=== PATIENT | male | born 1940 | race Caucasian/White ===

== ENCOUNTER 2024-04-23 07:37 | Outpatient (CLI) | payer MEDICARE, OTHER ==
[~2024-04-23 07:37] MED LIST: LACT1CAP64 PO; NOR5T PO; PANT40TA39 PO
== END 2024-04-23 23:59 | disposition home or self-care (01) ==
LOC: MRI02 07:37
PROVIDERS: ATTEND Family Medicine Sports Medicine
DX: M47.817 Spondylosis without myelopathy or radiculopathy, lumbosacral region (principal); M54.50 Low back pain, unspecified; M25.551 Pain in right hip; M16.11 Unilateral primary osteoarthritis, right hip; M48.07 Spinal stenosis, lumbosacral region; M51.379 Other intervertebral disc degeneration, lumbosacral region without mention of lumbar back pain or lower extremity pain; M43.16 Spondylolisthesis, lumbar region
CPT/HCPCS: 72148

== ENCOUNTER 2024-08-18 10:09 | Inpatient (IN) | payer MEDICARE, OTHER ==
[~2024-08-18] VITALS: Ht 185.4 cm; Wt 110.6 kg
[~2024-08-18 10:09] MED LIST changes: +AMLO2.5T2 PO; +APIX5TAB3 PO; +CELE-127 PO; +HYDR25TA4 PO; +IRBE300T26 PO; +MAGN400T39 PO; +MULT-1217 PO; -NOR5T PO; -PANT40TA39 PO; +TAMS-55 PO; +[UNRECOGNIZED DRUG - OTHER]
--- NOTE | 2024-08-18 10:25 | ELECTROCARDIOGRAPH REPORT ---
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 Freddie Mak Measurements Intervals [place] Rate: 81 P: -17 IA: 253 QRS: 21 QRSD: 141 T: -3 QT: 383 QTc: 445 Interpretive Statements Sinus tachycardia Multiform ventricular premature complexes Prolonged IA interval Right bundle branch block Electronically Signed On 08-18-2024 10:24:[address] Freddie Mak Please click the below link to view image of tracing.
[2024-08-18 10:32] LABS: MEAN PLATELET VOLUME 8.2 FL (7.4-10.4); RED CELL DISTRIBUTION WIDTH 14.1 % (11.5-14.5)
--- NOTE | 2024-08-18 10:45 | RADIOLOGY REPORT ---
CHEST RADIOGRAPH Indication: CP Technique: Single frontal view of the chest was obtained COMPARISON: None FINDINGS: Lines and Tubes: None Lungs: Clear Pleura: No effusion. No pneumothorax. Cardiomediastinal contours: Unremarkable Bones: Unremarkable IMPRESSION: No acute disease.
[2024-08-18 10:48] LABS: CREATININE 1.10 MG/DL (0.60-1.10); TOTAL CARBON DIOXIDE 25.7 MMOL/L (24-32); eCRCL 54 ML/MIN; eGFR 63 ML/MIN
--- NOTE | 2024-08-18 10:50 | Physician Documentation ---
History of Present Illness Chief Complaint: Post-operative complication Stated Complaint: POST OP COMPLICATIONS Time Seen by MD: 10:49 OK to notify your PCP?: Yes Source: patient, family, RN/, RN notes reviewed, old records Exam Limitations: no limitations HPI 84 year old male seen in bed 02 presents to the emergency department with family who was sent by home health nurse due to low heart rate. Patient had a right hip replacement performed by Dr. Guevara on 07/22/2024. Patient has been doing well in his healing process. Today his blood pressure dropped and he felt dizzy and lightheaded and reported a heart rate in the 40s. Patient denies any fevers chills or coughing. Of note he states he has an appointment with Dr. Guevara in two days to follow up following his surgery. Family states they had called Dr. Guevara office yesterday who were not concerned about his symptoms. Patient denies any other associated symptoms at this time. Patient denies any other alleviating or exacerbating factors. Medication Reconciliation Allergies: Coded Allergies: No Known Allergies (Unverified , 05/27/12) Scheduled Amlodipine* (Norvasc*), 1 TAB PO DAILY, (Reported) Apixaban (Eliquis), 1 TAB PO Q12H, (Reported) Hydrochlorothiazide (Hydrochlorothiazide), 1 TAB PO DAILY, (Reported) Irbesartan (Irbesartan), 1 TAB PO DAILY, (Reported) Lactobacillus Rhamnosus R0011 (Probiotic Digestive Care), 1 EACH PO DAILY, (Reported) Magnesium Oxide (Magnesium), 1 TAB PO DAILY, (Reported) Multivit-Min/Folic/Vit K/Lycop (Men's 50 Plus Multivitamin Tab), 1 TAB PO DAILY, (Reported) Tamsulosin Hcl* (Flomax*), 1 CAP PO DAILY, (Reported) Discontinued Medications Celecoxib (Celecoxib), 1 CAP PO BID Discontinued Reason: patient no longer taking [Cbg], 2,000 UNITS DAILY, (Reported) Discontinued Reason: patient no longer taking Past Medical History Past Medical History: Bronchitis, Cholelithiasis, GERD, Anemia, Arthritis, Chronic Back Pain, Osteoarthritis Past Surgical History: orthopedic surgeries Patient History: FH: CABG (coronary artery bypass surgery) FATHER MOTHER FH: diabetes mellitus FATHER Smoking Status: Never smoker Alcohol Use: None Drug Use: none Review of Systems All Other Systems at this time: Reviewed and Negative ROS As stated above in the HPI, otherwise all systems are reviewed and negative. Physical Exam Vital Signs: RN Vital Signs have been reviewed: Yes, Temperature: 98.2, Source: Temporal, Heart Rate: 53, Respiratory Rate: 19, BP: 187/80, Pulse Oximetry: 98, Weight: 110.600 Oxygen Flow Rate: 0 Pulse Oximetry Reflects: adequate oxygenation Physical Exam General: The patient is well developed, well nourished, nontoxic appearing and is in no acute distress. Skin: [place], warm and dry with no rashes. HEENT: Head was normocephalic and atraumatic. Eyes - pupils equal, round, reactive to light and accommodation. Extraocular movements were intact. Conjunctivae were nonicteric. Ears - bilateral tympanic membranes were normal. The mouth and oropharynx were clear with moist mucous membranes. There were no pharyngeal exudates or erythema. Neck: Supple and nontender. There was no jugular venous distention, lymphadenopathy, thyromegaly or masses. Chest: Clear to auscultation bilaterally without wheezes, rales or rhonchi. No accessory muscle use. No dullness to percussion. Heart: Rate regular and rhythmic. S1, S2. No murmurs. Palpation of the chest wall was normal. No rubs or thrills. Abdomen: Soft, nontender and nondistended. Positive bowel sounds. No guarding or rebound. No hepatosplenomegaly or palpable masses. Extremities: Well healing wound to right hip with no signs of infection.Portion of wound has maegan in place with minimal dehiscence. Blisters to right hip. The patient moves all extremities. Pulses were equal and symmetric. Neurologic: Cranial nerves II-XII were intact. Sensation was intact to light touch throughout. Motor strength was 5/5 in all four extremities. Deep tendon reflexes were intact in both upper and lower extremities. Psychologic: The patient was oriented to person, place and time. The patient demonstrated appropriate judgement and insight. Progress Progress Note 1520: The case was discussed with Dr. Guevara who was informed on the patients case and stated that the patient should be admitted. 1536: The case was discussed with the hospitalist Dr. Zapien who was informed on the patient and kindly agreed to admission. Results/Orders Reviewed/noted all lab results: Yes Results/Orders Vital Signs 08/18/24 10:11 Temp 98.2 Pulse 53 Resp 19 B/P (MAP) 187/80 Pulse Ox 98 O2 Flow Rate 0 Laboratory Tests Test 08/18/24 10:23 White Blood Count 8.5 Red Blood Count 4.82 Hemoglobin 14.8 Hematocrit 43.9 Mean Corpuscular Volume 91.1 Mean Corpuscular Hemoglobin 30.6 Mean Corpuscular Hemoglobin Concent 33.6 Red Cell Distribution Width 14.1 Platelet Count 256 Mean Platelet Volume 8.2 Neutrophils (%) (Auto) 66.3 Lymphocytes (%) (Auto) 14.8 L Monocytes (%) (Auto) 12.4 H Eosinophils (%) (Auto) 5.8 Basophils (%) (Auto) 0.7 Neutrophils # (Auto) 5.6 Lymphocytes # (Auto) 1.3 Monocytes # (Auto) 1.1 H Eosinophils # (Auto) 0.5 Basophils # (Auto) 0.1 CBC Comment Sodium Level 136 Potassium Level 3.9 Chloride Level 100 Carbon Dioxide Level 25.7 Anion Gap 10 Blood Urea Nitrogen 19 H Creatinine 1.10 Estimated GFR/1.73 m2 63 BUN/Creatinine Ratio 17.3 Glucose Level 131 H Calcium Level 9.6 Total Bilirubin 0.4 Aspartate Amino Transf (AST/SGOT) 24 Alanine Aminotransferase (ALT/SGPT) 35 Alkaline Phosphatase 123 H Troponin I High Sensitivity 17 Total Protein 7.9 Albumin 3.9 Globulin 4.0 Albumin/Globulin Ratio 1.0 L Chemistry Comments Re-Evaluation Re-Evaluation : Re-Evaluation: Improved Progress Patient was seen and examined. Patient is given reassurance. The patient was complaining of some right hip pain some slight swelling potential wound dehiscence maegan are in place in the inferior aspect of the wound but no signs of obvious infection. Laboratory work also showed no hints of infection with a WBC of 8.5 H and H of 14 and 43 platelets 256. Patient's chemistry was also reassuring without any electrolyte abnormalities no renal insufficiency or abnormalities. LFTs were reassuring as well. Patient received fluids vancomycin Rocephin after CAT scan showed seroma hematoma versus infection. Patient's markers are going against infection which is reassuring. Case was discussed with Orthopedic surgery who recommended admission IV antibiotics and the patient will be re-evaluated. Possibly seroma and postoperative pain. Family was aware of the plan and the patient was then admitted for further management and care. Continuous vehicle monitor technician interpretation shows normal sinus rhythm heart rate 50s, no ectopy, normal, my interpretation. Pulse oximetry monitor interpretation shows normal oxygenation at 98% room air, normal, my interpretation. EKG/XRAY/CT/US/VASC/MRI EKG : Additional Comment 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 Freddie Mak Measurements Intervals [place] Rate: 81 P: -17 MT: 253 QRS: 21 QRSD: 141 T: -3 QT: 383 QTc: 445 Interpretive Statements Sinus tachycardia Multiform ventricular premature complexes Prolonged MT interval Right bundle branch block Electronically Signed On 08-18-2024 10:24:[address] Freddie Mak Please click the below link to view image of tracing. EKG Date and Time:08/18/24 1023 Electronically Signed by: FREDDIE MAK MD Date and Time: 08/18/24 1024 Chest X-Ray : Additional Comments CHEST RADIOGRAPH Indication: CP Technique: Single frontal view of the chest was obtained COMPARISON: None FINDINGS: Lines and Tubes: None Lungs: Clear Pleura: No effusion. No pneumothorax. Cardiomediastinal contours: Unremarkable Bones: Unremarkable IMPRESSION: No acute disease. Electronically Signed by:PORFIRIO SANDHU MD Date & Time: 08/18/[address] : Impression CLINICAL INDICATION: right hip surgery pain drainage TECHNIQUE: CT scan of the right hip was performed with intravenous contrast. 100 mL Omnipaque 350 intravenous contrast was used. Coronal and sagittal reformatted images are submitted. COMPARISON: None CT Dose: CTDI volume is 20.3 mGy. Dose-length product is 817.2 mGy*cm FINDINGS: There is a right hip replacement. The components are well aligned and well seated. No perihardware lucency. No periprosthetic fracture. No cortical destruction or periosteal reaction. There is a right hip joint effusion which is contiguous with a fluid collection in the deep subcutaneous soft tissues of the hip. The fluid collection measures 6.8 by 3.3 by 10.8 cm. There is minimal peripheral enhancement of the fluid collection. Mild subcutaneous stranding in the soft tissues of the right hip. Skin closure maegan noted. No cortical destruction or periosteal reaction. IMPRESSION: 1. 10.8 cm fluid collection in the soft tissues of the right hip contiguous with right hip joint. This could reflect postoperative seroma or abscess. Fluid sampling may be obtained if clinically warranted. 2. No acute osseous abnormality or abnormal alignment of the right hip replacement. All CT scans at this medical facility are performed using dose modulation techniques as appropriate to a performed exam including the following: Automated exposure control was utilized; adjustment of the MA and/or KV according to patient size; and use of iterative reconstruction technique. Electronically Signed by:ALYSSA HERRERA MD Date & Time: 08/18/24 1329 Medical Decision Making Additional info obtained from: old records Differential Dx:Considerations: Include: Other Departure Disposition: 09 ADMITTED INPATIENT Admitted to Inpatient Unit: yes, to hospitalist Admission Level of Care: Med/Surg Impression: Primary Impression: Acute postoperative pain of hip Qualified Codes: G89.18 - Other acute postprocedural pain; M25.551 - Pain in right hip Additional Impression: Seroma Condition: Fair Referrals: NO PRIMARY CARE PROVIDER (PCP) Education Educated: Patient, Family Educated regarding: diagnosis, treatment, prognosis, need for follow up Signature Scribe Signature: Scribed for Freddie Mak MD by Deniz Jefferson . 08/18/24 11:24 Attestation: The note accurately reflects work and decisions made by me.Freddie Mak MD 08/18/24 10:50 FREDDIE MAK MD Aug 18, 2024 10:50 DENIZ WELCH Aug 18, 2024 11:20
[2024-08-18 10:54] LABS: PRO BRAIN NATRIURETIC PEPTIDE 430 PG/ML (0-450)
[2024-08-18] MEDS: normal saline 1000ML IV soln IVB ONE (11:34)
[2024-08-18] MEDS ORDERED: iohexol 300mg/ml 100ml inj. ONE (12:10)
--- NOTE | 2024-08-18 13:32 | RADIOLOGY REPORT ---
CLINICAL INDICATION: right hip surgery pain drainage TECHNIQUE: CT scan of the right hip was performed with intravenous contrast. 100 mL Omnipaque 350 int ravenous contrast was used. Coronal and sagittal reformatted images are submitted. COMPARISON: None CT Dose: CTDI volume is 20.3 mGy. Dose-length product is 817.2 mGy*cm FINDINGS: There is a right hip replacement. The components are well aligned and well seated. No vani hardware lucency. No periprosthetic fracture. No cortical destruction or periosteal reaction. There i s a right hip joint effusion which is contiguous with a fluid collection in the deep subcutaneous sof t tissues of the hip. The fluid collection measures 6.8 by 3.3 by 10.8 cm. There is minimal periphe ral enhancement of the fluid collection. Mild subcutaneous stranding in the soft tissues of the righ t hip. Skin closure maegan noted. No cortical destruction or periosteal reaction. IMPRESSION: 1. 10.8 cm fluid collection in the soft tissues of the right hip contiguous with right hip joint. Thi s could reflect postoperative seroma or abscess. Fluid sampling may be obtained if clinically warrant ed. 2. No acute osseous abnormality or abnormal alignment of the right hip replacement. All CT scans at this medical facility are performed using dose modulation techniques as appropriate t o a performed exam including the following: Automated exposure control was utilized; adjustment of th e MA and/or KV according to patient size; and use of iterative reconstruction technique.
[2024-08-18] MEDS ORDERED: magnesium Cl slow-release 64mg tablet PO PRN (15:45)
[2024-08-18] MEDS ORDERED: potassium Cl 40MEQ/1/2NS 520ml 520 ML IV PRN (15:45)
[2024-08-18] MEDS ORDERED: potassium Cl 20 mEq SR tablet PO PRN ×2 (15:45)
[2024-08-18] MEDS: CefTRIAXone 2gm/D5W 50ml BAG 50 ML IV ONE (15:47)
[2024-08-18] MEDS: normal saline 1000ml 1,000 ML IV SCH (15:54)
[2024-08-18] MEDS: VANCOMYCIN 1.75GM/WATER FOR INJ (PEG) 350 ML IVPB IV ONE (16:13)
--- NOTE | 2024-08-18 16:31 | HISTORY AND PHYSICAL-Residence ---
History & Physical Providers to CC Resident Creating Document: RAFFI AMADOR RES ~ History of Present Illness Reason for Admit\Complaint: pain in hip, low heart rate History of Present Illness This is an 84-year-old male with a history of severe degenerative joint disease, hypertension, and atrial fibrillation (managed by Dr. Eaton) , who is status post right hip arthroplasty on July 22, [address] Guevara. He presented to the ER today with severe, excruciating right hip pain that started this morning in his progressively worsened. The pain is aggravated by weight-bearing activities, rendering him unable to ambulate, but improves with rest. In addition to his pain, the patient was evaluated by his physical therapist this morning, who noted bradycardia with heart rate in the 40s, as well as low blood pressure, associated with dizziness, and lightheadedness. He denies chest pain, shortness of breath, or fever. A CT scan of the lower extremity revealed 10.8 cm fluid collection within the soft tissue of the right hip, concerning for postoperative seroma or possible abscess. CBC was within reference ranges. On exam, there is no inflammatory signs i.e., tenderness, warmth, or swelling. He reports otherwise steady progress in his recovery. He has a follow up appointment with Dr. Guevara in two days, and had previously contracted Dr. Guevara of his yesterday, where no significant concern was raised at that time. Patient lives alone in his home and has a remote history of smoking, consumes alcohol occasionally, and denies recreational drugs. I have discussed advance care planning with the patient. The patient has decided on a full code status. Allergies: Coded Allergies: No Known Allergies (Unverified , 05/27/12) Home Medications Home Medications Active Reported Norvasc* (Amlodipine Besylate) 2.5 Mg Tablet 1 Tab PO DAILY 30 Days Magnesium (Magnesium Oxide) 400 Mg Magnesium Tablet 1 Tab PO DAILY NEEDED Men's 50 Plus Multivitamin Tab (Multivit-Min/Folic/Vit K/Lycop) 400 Mcg-20 Mcg- 370 Mcg Tablet 1 Tab PO DAILY Eliquis (Apixaban) 5 Mg Tablet 1 Tab PO Q12H Hydrochlorothiazide 25 Mg Tablet 1 Tab PO DAILY Irbesartan 300 Mg Tablet 1 Tab PO DAILY Flomax* (Tamsulosin HCl) 0.4 Mg Cap.sr.24h 1 Cap PO DAILY Probiotic Digestive Care (Lactobacillus Rhamnosus R0011) 1 Each Capsule 1 Each PO DAILY Past Medical History Past Medical History Osteoarthritis, hypertension, atrial fibrillation Past Surgical History Surgical History Comment Right hip arthroplasty Family History Family History: FH: CABG (coronary artery bypass surgery) FATHER MOTHER FH: diabetes mellitus FATHER Past Social History Social History Comment Patient lives alone in his home and has a remote history of smoking, consumes alcohol occasionally, and denies recreational drugs. I have discussed advance care planning with the patient. The patient has decided on a full code status. ROS All Other Systems: Reviewed and Negative ROS As stated above in the HPI, otherwise all systems are reviewed and negative. Exam Vitals: Vital Signs Date Time Temp Pulse Resp B/P (MAP) Pulse Ox O2 Delivery O2 Flow Rate FiO2 08/18/24 15:48 68 16 145/75 (98) 98 0 08/18/24 10:11 98.2 General: Awake and Alert, no acute distress. HEENT: Conjunctiva pink, Sclera clear, Mucus Membranes moist. Neck: Supple without masses and tenderness. Resp: Unlabored. Lungs clear to auscultation bilaterally. Heart: Regular Rate and rhythm, normal S1 and S2 without murmur, rub or gallop. Abdomen: Soft and non tender no organomegaly Extremities: Right hip does not have any warmth, tenderness, or swelling. Five maegan retained, to blisters noted around surgical site Skin: Warm and Dry. Diagnostic Data Last Recorded Lab Results: 08/18/24 1023 08/18/24 1023 Advance Care Planning Advanced Care plannin - 30 Minutes Additional Plan Severe right hip pain History of severe degenerative joint disease Status post right hip arthroplasty; July 22, 2024 Pain likely related to a postoperative fluid collection seen on CT; concerning for seroma versus abscess Dr. Guevara consulted, evaluation pending. NPO after midnight Monitor for systemic signs of infection Pain management IV hydration; NS 100 mL/hour Empiric antibiotics; vancomycin and ceftriaxone Bradycardia with hypotension Found by physical therapist; heart rate in the 40s with the associated dizziness and lightheadedness Telemetry monitoring; trend heart rate and blood pressure Hold AV toney blockers Hypertension History of hypertension, currently stable Hold antihypertensive medications i.e. hydrochlorothiazide, amlodipine and irbesartan History of AFib; currently sinus, no RVR Hold Eliquis for possible intervention; risk versus benefits discussed with the patient Code status: Full code DVT prophylaxis: Lovenox Raffi Najibi Internal Medicine Resident Date of Service: Aug 18, 2024 Billing Provider: JEREMIE ANDERSON MD Common Visit Codes: 51683-[id number] INP/OBS CARE (HIGH) Secondary Visit Codes: 44370-[id number] CARE PLAN 30 MINUTES RAFFI AMADOR, RES Aug 18, 2024 16:31 JEREMIE ANDERSON MD Aug 19, 2024 17:51
[2024-08-18 17:50] VITALS: BP 159/80; PULSE 64; RESP 16; TEMP 98.4; O2SAT 98
[2024-08-18 20:30] VITALS: RESP 18; O2SAT 98
[2024-08-18 22:18] VITALS: BP 162/74; PULSE 54; RESP 18; TEMP 97.4; O2SAT 97
[2024-08-19] MEDS ORDERED: HYDROcodone/acetaminophen 5mg/325mg tablet PO PRN (00:25)
[2024-08-19] MEDS: HYDROcodone/acetaminophen 10/325mg tab PO PRN (00:51)
[2024-08-19] MEDS: vancomycin/NS 1 GM ADD-VANTAGE 250 ML X 1 DOSE IV SCH (04:23)
[2024-08-19 05:16] LABS: MEAN PLATELET VOLUME 8.1 FL (7.4-10.4); RED CELL DISTRIBUTION WIDTH 14.0 % (11.5-14.5)
[2024-08-19 05:32] LABS: CREATININE 0.90 MG/DL (0.60-1.10); TOTAL CARBON DIOXIDE 27.4 MMOL/L (24-32); eCRCL 67 ML/MIN; eGFR 80 ML/MIN
[2024-08-19 06:00] VITALS: BP 150/61; PULSE 69; RESP 20; TEMP 98.2; O2SAT 98
[2024-08-19] MEDS ORDERED: enoxaparin 40mg/0.4ml syringe SUBCUT SCH (08:00)
--- NOTE | 2024-08-19 09:00 | CONSULTATION REPORT ---
History of Present Illness Providers to CC ~ Reason for Admit\Admit Dx: pain in hip, low heart rate History of Present Illness Right pain status post total hip arthroplasty. History of present illness: This patient is three weeks status post total hip arthroplasty developed increased pain two days prior to his presentation of the emergency room for increased pain. He is unaware of any significant activity the cause of the onset of pain. He please note he is on anticoagulation therapy He denies a fall or traumatic episode. He denies fever or malaise. Exam: Patient has right hip exam shows a well-healed incision without any erythema moderate swelling but no drainage. Neuromotor and vascular supply is intact to the right upper extremity moderate swelling to his right thigh consistent with his postop status total hip arthroplasty. No other findings on exam. Labs were reviewed and are within normal limits except for some mild anemia which is consistent with his postop status. CT scan reveals fluid collection 10 cm anterior hip wishes the area of the surgical approach consistent with seroma versus hematoma. Assessment: Patient has developed a postop hematoma seroma that became asymptomatic probably secondary to his anticoagulation. His symptoms have completely resolved with his hospitalization and reduced activity. Plan: I have discussed the situation with him and his son who is his caregiver at this point in time. The very comfortable having him go home and spend more time in the recliner and less time upright and active. I am recommending he continue oral antibiotics postoperatively for prophylaxis. Follow up with me in two weeks. Allergies: Coded Allergies: No Known Allergies (Unverified , 05/27/12) Home Medications Home Medications Active Reported Norvasc* (Amlodipine Besylate) 2.5 Mg Tablet 1 Tab PO DAILY 30 Days Magnesium (Magnesium Oxide) 400 Mg Magnesium Tablet 1 Tab PO DAILY NEEDED Men's 50 Plus Multivitamin Tab (Multivit-Min/Folic/Vit K/Lycop) 400 Mcg-20 Mcg- 370 Mcg Tablet 1 Tab PO DAILY Eliquis (Apixaban) 5 Mg Tablet 1 Tab PO Q12H Hydrochlorothiazide 25 Mg Tablet 1 Tab PO DAILY Irbesartan 300 Mg Tablet 1 Tab PO DAILY Flomax* (Tamsulosin HCl) 0.4 Mg Cap.sr.24h 1 Cap PO DAILY Probiotic Digestive Care (Lactobacillus Rhamnosus R0011) 1 Each Capsule 1 Each PO DAILY Past Family History Family History: FH: CABG (coronary artery bypass surgery) FATHER MOTHER FH: diabetes mellitus FATHER Physical Exam Last Vital Signs Recorded: Temperature: 98.2, Source: Oral, Heart Rate: 69, Respiratory Rate: 20, BP: 150/61, Pulse Oximetry: 98, Weight: 110.600 Results Diagram Lab Result Diagram: 08/19/2449908/19/24 0500 CARMEN CABELLO MD Aug 19, 2024 08:59
[2024-08-19 09:29] VITALS: RESP 15
[2024-08-19] MEDS ORDERED: AMOX-580 PO (11:36)
--- NOTE | 2024-08-19 12:21 | DISCHARGE SUMMARY-Residence ---
Discharge Summary Providers to CC Resident Creating Document: PILI AMADOR, HYUN ~ Discharge Summary Admission Diagnosis: Right hip seroma/abscess Hospital Course DATE OF ADMISSION: AUGUST 18, 2024 DATE OF DISCHARGE: AUGUST 19, 2024 Discharge Diagnosis\Comment: Severe right hip pain; seroma/hematoma 2/2 right hip arthroplasty History of severe degenerative joint disease Status post right hip arthroplasty; July 22, 2024 Reported Bradycardia with hypotension; not recorded on telemetry during hospital stay Hypertension History of atrial fibrillation Operations\Procedures: none Consultants: Dr. Guevara Complications: none Condition on DC: Stable New Medications: Amox Tr/Potassium Clavulanate 875/125 MG (Augmentin 875/125 MG) 875 Mg-125 Mg Tablet 1 TAB PO BID, #14 TAB Continued Medications: Amlodipine* (Norvasc*) 2.5 Mg Tablet 1 TAB PO DAILY for 30 Days, #30 TAB Apixaban (Eliquis) 5 Mg Tablet 1 TAB PO Q12H, TAB 0 Refills Hydrochlorothiazide (Hydrochlorothiazide) 25 Mg Tablet 1 TAB PO DAILY, TAB 0 Refills Irbesartan (Irbesartan) 300 Mg Tablet 1 TAB PO DAILY, TAB 0 Refills Lactobacillus Rhamnosus R0011 (Probiotic Digestive Care) 1 Each Capsule 1 EACH PO DAILY Magnesium Oxide (Magnesium) 400 Mg Magnesium Tablet 1 TAB PO DAILY, TAB 0 Refills NEEDED Multivit-Min/Folic/Vit K/Lycop (Men's 50 Plus Multivitamin Tab) 400 Mcg-20 Mcg- 370 Mcg Tablet 1 TAB PO DAILY Tamsulosin Hcl* (Flomax*) 0.4 Mg Cap.sr.24h 1 CAP PO DAILY, CAP Discharge Summary: Hospital Course: This is an 84-year-old male with a history of severe degenerative joint disease, hypertension, and atrial fibrillation (managed by Dr. Eaton) , who is status post right hip arthroplasty on July 22, [address] Guevara. He presented to the ER today with severe, excruciating right hip pain that started this morning in his progressively worsened. The pain is aggravated by weight-bearing activities, rendering him unable to ambulate, but improves with rest. In addition to his pain, the patient was evaluated by his physical therapist this morning, who noted bradycardia with heart rate in the 40s, as well as low blood pressure, associated with dizziness, and lightheadedness. He denies chest pain, shortness of breath, or fever. A CT scan of the lower extremity revealed 10.8 cm fluid collection within the soft tissue of the right hip, concerning for postoperative seroma or possible abscess. CBC was within reference ranges. On exam, there is no inflammatory signs i.e., tenderness, warmth, or erythema. He reports otherwise steady progress in his recovery. Discharge Course: Patient is stable. His symptoms resolved with reduced activity. Dr. Guevara was consulted who evaluated the patient as well as imaging and concluded that the patient does not need any intervention, cleared him for DC. Empiric antibiotics was recommended by Dr. Guevara. Physical therapy evaluation also cleared him for DC with the home health. He was discharged with the following instructions: Follow up with Dr. Guevara at his clinic in two weeks as scheduled Follow up with your primary care doctor within one week. Follow up with your line service person for your reported low heart rate, you may benefit from Holter monitor/event monitor. Return to ER or call 911 if you experience high-grade fever, chills, worsening right hip pain, tenderness, swelling, or purulent discharge. Discharge physical exam: Vital Signs Date Time Temp Pulse Resp B/P (MAP) Pulse Ox O2 Delivery O2 Flow Rate FiO2 08/19/24 09:29 15 08/19/24 08:00 Room Air 08/19/24 07:09 34 08/19/24 06:00 98.2 150/61 (90) 98 08/18/24 15:48 0 General: Awake and Alert, no acute distress. HEENT: Conjunctiva pink, Sclera clear, Mucus Membranes moist. Neck: Supple without masses and tenderness. Resp: Unlabored. Lungs clear to auscultation bilaterally. Heart: Regular Rate and rhythm, normal S1 and S2 without murmur, rub or gallop. Abdomen: Soft and non tender no organomegaly Extremities: Right hip does not have any warmth, tenderness, or swelling. Five maegan retained, to blisters noted around surgical site Skin: Warm and Dry. Discharge lab: CBC: WBCs 7.7, RBC 4.11, hemoglobin 12.7, hematocrit 37, platelet count 193 CMP: Sodium 139, potassium 3.7, BUN/creatinine 15/0.90, EGFR 80, total bilirubin 0.6, AST/ALT 19/27, alkaline phosphatase 97, total protein 6.3, albumin 3.0, globulin 3.3, procalcitonin < 0.[address] performed on August 18, 2024: FINDINGS: There is a right hip replacement. The components are well aligned and well seated. No perihardware lucency. No periprosthetic fracture. No cortical destruction or periosteal reaction. There is a right hip joint effusion which is contiguous with a fluid collection in the deep subcutaneous soft tissues of the hip. The fluid collection measures 6.8 by 3.3 by 10.8 cm. There is minimal peripheral enhancement of the fluid collection. Mild subcutaneous stranding in the soft tissues of the right hip. Skin closure maegan noted. No cortical destruction or periosteal reaction. IMPRESSION: 1. 10.8 cm fluid collection in the soft tissues of the right hip contiguous with right hip joint. This could reflect postoperative seroma or abscess. Fluid sampling may be obtained if clinically warranted. 2. No acute osseous abnormality or abnormal alignment of the right hip replacement. *Problems/Diagnosis: (1) Degenerative joint disease of right hip (2) Seroma Status: Acute (3) Acute postoperative pain of hip Status: Acute Total Time Spent on D/C: Up to 30 Minutes Date of Service: Aug 19, 2024 Billing Provider: JEREMIE ANDERSON MD Common Visit Codes: 78035-PYQ/OBS DISCH DAY >30min Problem Qualifiers (1) Acute postoperative pain of hip: Laterality: right Qualified Codes: G89.18 - Other acute postprocedural pain; M25.551 - Pain in right hip PILI AMADOR, RES Aug 19, 2024 12:19 JEREMIE ANDERSON MD Aug 19, 2024 17:52
[2024-08-19] MEDS ORDERED: CefTRIAXone 2gm/D5W 50ml BAG 50 ML IV SCH (16:00)
[2024-08-20] MEDS ORDERED: VANCOMYCIN LEVEL IV ONE (03:30)
== END 2024-08-19 12:03 | disposition home health service (06) | DRG 921 ==
LOC: ER 10:10 → ED HOLD 15:46 → UNDOADMIN 15:46 → ED HOLD 16:20 → ORTHO 4S 17:31
PROVIDERS: ADMIT Internal Medicine; ATTEND Internal Medicine
PROC: BQ201ZZ Computerized Tomography (CT Scan) of Right Hip using Low Osmolar Contrast (ICD-10-PCS; principal; 2024-08-18)
DX: L76.34 Postprocedural seroma of skin and subcutaneous tissue following other procedure (principal); G89.18 Other acute postprocedural pain; K21.9 Gastro-esophageal reflux disease without esophagitis; I10 Essential (primary) hypertension; I48.91 Unspecified atrial fibrillation; I95.9 Hypotension, unspecified; Y83.8 Other surgical procedures as the cause of abnormal reaction of the patient, or of later complication, without mention of misadventure at the time of the procedure; Y82.8 Other medical devices associated with adverse incidents; S70.01XA Contusion of right hip, initial encounter; X58.XXXA Exposure to other specified factors, initial encounter; Y93.89 Activity, other specified; Y99.8 Other external cause status; Y92.89 Other specified places as the place of occurrence of the external cause; Z79.01 Long term (current) use of anticoagulants; Z79.899 Other long term (current) drug therapy; Z95.1 Presence of aortocoronary bypass graft
CPT/HCPCS: 36415; 71045; 73701; 80053; 83605; 83880; 84145; 84484; 85025; 87040; 87081; 93005; 96365; 97161; 97530; 99285; G0378; J0696; J3370; J3372; J7030; Q9967

== ENCOUNTER 2024-10-09 10:29 | Emergency (ER) | payer MEDICARE, OTHER ==
[~2024-10-09] VITALS: Ht 185.4 cm; Wt 113.6 kg
[~2024-10-09 10:29] MED LIST changes: +CARV-164 PO; -CELE-127 PO; -HYDR25TA4 PO; -[UNRECOGNIZED DRUG - OTHER]
[2024-10-09 10:39] VITALS: TEMP 97.8
--- NOTE | 2024-10-09 10:48 | ELECTROCARDIOGRAPH REPORT ---
[facility] Test Date: 2024-10-09 Test Time: 10:46:14 Pat Name: DENISHA FIGUEROA Department: EMERGENCY ROOM Room: Gender: M [employer] Supervisor: MAMI : 1940 Requested By: AILEEN CHAVEZ Order Number: [id number] Reading MD: Measurements Intervals Clarence Rate: 96 P: -2 CA: 256 QRS: -73 QRSD: 140 T: 14 QT: 412 QTc: 521 Interpretive Statements Sinus rhythm Ventricular bigeminy Prolonged CA interval Consider left atrial enlargement RBBB and LAFB Please click the below link to view image of tracing.
[2024-10-09 11:06] LABS: MEAN PLATELET VOLUME 8.9 FL (7.4-10.4); RED CELL DISTRIBUTION WIDTH 15.0 % (11.5-14.5)
[2024-10-09 11:30] LABS: CREATININE 0.98 MG/DL (0.60-1.10); PRO BRAIN NATRIURETIC PEPTIDE 705 PG/ML (0-450); TOTAL CARBON DIOXIDE 24.1 MMOL/L (24-32); eCRCL 61 ML/MIN; eGFR 73 ML/MIN
--- NOTE | 2024-10-09 11:30 | Physician Documentation ---
History of Present Illness General Chief Complaint: Irregular Heartbeat Stated Complaint: IRREG BLOOD PRESSURE Time Seen by MD: 11:21 Primary Medical Doctor: omar Mode of Arrival: POV History of Present Illness Initial Comments The patient is an 84-year-old male who has hypertension the patient states that he has had increased blood pressures at home over last two days and he has had low heart rates that have registered as low on his watch. The patient denies any shortness of breath or chest pain. 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 Patient states he started carvedilol and August he states his symptoms of low heart rate of been going on for a proximally the last 3-4 weeks. Patient denies any fevers chills nausea or vomiting. Patient's symptoms are moderate and persistent. Medication Reconciliation Allergies: Coded Allergies: No Known Allergies (Unverified , 10/09/24) Scheduled Amlodipine* (Norvasc*), 1 TAB PO DAILY, (Reported) Apixaban (Eliquis), 1 TAB PO Q12H, (Reported) Carvedilol (Carvedilol), 3.125 MG PO BID Irbesartan (Irbesartan), 1 TAB PO DAILY, (Reported) Lactobacillus Rhamnosus R0011 (Probiotic Digestive Care), 1 EACH PO DAILY, (Reported) Magnesium Oxide (Magnesium), 1 TAB PO DAILY, (Reported) Multivit-Min/Folic/Vit K/Lycop (Men's 50 Plus Multivitamin Tab), 1 TAB PO DAILY, (Reported) Tamsulosin Hcl* (Flomax*), 1 CAP PO DAILY, (Reported) Past Medical History Past Medical History: Bronchitis, Cholelithiasis, GERD, Anemia, Arthritis, Chronic Back Pain, Osteoarthritis Past Surgical History: orthopedic surgeries Alcohol Use: None Drug Use: none Review of Systems All Other Systems at this time: Reviewed and Negative Physical Exam Physical Exam Vital Signs: Temperature: 97.8, Source: Oral, Heart Rate: 71, Respiratory Rate: 18, BP: 151/69, Pulse Oximetry: 95, Weight: 113.640 Oxygen Flow Rate: 0 Physical Exam VITALS: Reviewed and as above. GENERAL: Alert, no apparent distress. HEENT: Normocephalic, atraumatic, PERRL, EOMI, dry mucosa, no erythema RESPIRATORY: Lungs clear, normal breath sounds, no respiratory distress. CHEST: No accessory muscle use, no retractions CV: Irregularly irregular, rhythm, no edema, no murmur, No: JVD GI: Soft, non-tender, bowels sounds present, no rebound, guarding, or rigidity BACK: No CVA tenderness, or swelling MUSCULOSKELETAL: No deformities, no edema SKIN: Warm and dry, no rash NEURO: Oriented x4, No motor or sensory deficit PSYCH: Normal mood and affect, no agitation Progress Results/Orders Results/Orders Orders - OHLFS,CHRISTIANA Stiles MD, Md To Page (10/09/24 ) Vital Signs 10/09/24 10/09/24 10/09/24 10/09/24 10:39 11:01 11:14 11:29 Temp 97.8 Pulse 43 82 71 Resp 18 16 18 B/P (MAP) 212/102 165/84 (111) 151/69 (96) Pulse Ox 99 97 95 O2 Flow Rate 0 0 10/09/24 10/09/24 12:10 12:50 Pulse 71 85 Resp 12 14 B/P (MAP) 151/87 (108) 140/86 Pulse Ox 96 97 O2 Flow Rate 0 Laboratory Tests Test 10/09/24 10:50 White Blood Count 7.7 Red Blood Count 4.98 Hemoglobin 15.5 Hematocrit 44.7 Mean Corpuscular Volume 89.8 Mean Corpuscular Hemoglobin 31.1 H Mean Corpuscular Hemoglobin Concent 34.6 Red Cell Distribution Width 15.0 H Platelet Count 193 Mean Platelet Volume 8.9 Neutrophils (%) (Auto) 70.4 Lymphocytes (%) (Auto) 16.5 L Monocytes (%) (Auto) 10.7 Eosinophils (%) (Auto) 2.0 Basophils (%) (Auto) 0.4 Neutrophils # (Auto) 5.5 Lymphocytes # (Auto) 1.3 Monocytes # (Auto) 0.8 Eosinophils # (Auto) 0.2 Basophils # (Auto) 0.0 CBC Comment Sodium Level 138 Potassium Level 4.3 Chloride Level 105 Carbon Dioxide Level 24.1 Anion Gap 9 Blood Urea Nitrogen 14 Creatinine 0.98 Estimated GFR/1.73 m2 73 BUN/Creatinine Ratio 14.3 Glucose Level 127 H Calcium Level 9.3 Troponin I High Sensitivity 16 Pro-B-Type Natriuretic Peptide 705 H Albumin 3.9 Chemistry Comments EKG/XRAY/CT/US/VASC/MRI Chest X-Ray : Additional Comments Patient: DENISHA FIGUEROA Medical Record: [id number] [facility] : 1940, Age: 84 Sex: Male Location: ER Patient Status: [facility] ER Service Date/Time: 10/09/241044 Ordering Physician: AILEEN CHAVEZ NP Exam: CHEST,SINGLE VIEW CHEST RADIOGRAPH Indication: CP Technique: Single frontal view of the chest was obtained COMPARISON: DI CHEST,SINGLE VIEW on DOS: 08/31/24, DI CHEST,SINGLE VIEW on DOS: 08/18/24 FINDINGS: Lines and Tubes: None Lungs: Left basilar subsegmental atelectasis. Pleura: No effusion. No pneumothorax. Cardiomediastinal contours: Unremarkable Bones: Unremarkable IMPRESSION: Left basilar subsegmental atelectasis. 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 The patient's cardiac workup in the emergency room room was unremarkable patient's cardiac rhythm was interpreted as a sinus rhythm with multiple PVCs and the patient's pulse oximetry was interpreted as normal. The patient's chest chest x-ray was reviewed by myself and shows a normal mediastinum normal cardiac silhouette and slight airspace opacity in the left base consistent with atelectasis I have reviewed the radiologist's interpretation and agree with the interpretation. Labs were reviewed prior hospitalizations were reviewed. The patient's case was discussed with cardiology on on-call Dr. Chan who states that the patient should decrease the carvedilol dose to half of there dose and take it after breakfast and after dinner. Other etiologies considered infectious etiologies as well as cardiac ischemia he is not supported by the clinical evidence. Departure Disposition: HOME / SELF CARE / HOMELESS Impression: Primary Impression: Pulsus bigeminus Discharge Instructions: Cardiac Arrhythmia Additional Instructions: Follow up with your batting machine operator insulation, decrease your dose take half of the carvedilol twice daily take it after breakfast and after dinner. Return for worsening of your symptoms. Referrals: NO PRIMARY CARE PROVIDER (PCP) Signature Scribe Signature: no scribe Attestation: The note accurately reflects work and decisions made by me.Christiana Palmer MD 10/09/24 12:27 CHRISTIANA PALMER MD Oct 09, 2024 11:30
[2024-10-09 12:50] VITALS: BP 140/86; PULSE 85; RESP 14; O2SAT 97
== END 2024-10-09 12:51 | disposition home or self-care (01) ==
LOC: ER 10:29
DX: R00.8 Other abnormalities of heart beat (principal); R06.02 Shortness of breath
CPT/HCPCS: 36415; 71045; 80048; 83880; 84484; 85025; 93005; 99285